=== PATIENT | male | born 1980 | race Caucasian/White ===

== ENCOUNTER 2018-11-24 17:14 | Observation (INO) | payer BC, SELFPAY ==
[~2018-11-24] VITALS: Ht 182.9 cm; Wt 104.3 kg
[2018-11-24 18:12] LABS: BASOPHILS ABSOLUTE AUTO 0.03 K/mm3 (0.00-0.23); BASOPHILS PERCENT AUTO 0 % (0-2); EOSINOPHILS ABSOLUTE AUTO 0.15 K/mm3 (0.00-0.68); EOSINOPHILS PERCENT AUTO 1 % (0-6); Hematocrit 45.5 % (37.0-53.0); Hemoglobin 15.2 g/dL (13.5-17.5); IMMATURE GRAN ABSOLUTE AUTO 0.07 K/mm3 (0.00-0.10); IMMATURE GRAN PERCENT AUTO 1 % (0-1); LYMPHOCYTES PERCENT AUTO 12 % (21-46); MONOCYTES ABSOLUTE AUTO 1.12 K/mm3 (0.16-1.47); MONOCYTES PERCENT AUTO 7 % (4-13); Mean Corpuscular HGB 28.6 pg (26.0-34.0); Mean Corpuscular HGB Conc 33.4 g/dL (31.5-36.5); Mean Corpuscular Volume 86 fL (80-100); NEUTROPHILS ABSOLUTE AUTO 12.15 K/mm3 (1.96-9.15); NEUTROPHILS PERCENT AUTO 79 % (41-73); Platelet Count 381 K/mm3 (150-400); RDW Coefficient Variation 12.4 % (11.7-14.2); RDW Standard Deviation 38.5 fL (35.1-46.3); Red Blood Cell Count 5.31 M/mm3 (4.30-5.90); White Blood Cell Count 15.32 K/mm3 (4.00-11.30)
[2018-11-24 18:22] LABS: Alanine Aminotransfer (ALT/SGP 225 U/L (12-78); Albumin, Blood 4.1 g/dL (3.4-5.0); Alk Phos 233 U/L (50-136); Anion Gap 9 mmol/L (6-16); Aspartate Aminotrans (AST/SGOT 358 U/L (12-37); Bilirubin, Total 0.9 mg/dL (0.1-1.0); Blood Urea Nitrogen 15 mg/dL (8-24); Bun/Creatinine Ratio 20.6 (12.0-20.0); CO2, Blood 26 mmol/L (21-32); Calcium, Blood 8.8 mg/dL (8.5-10.1); Chloride, Blood 102 mmol/L (98-108); Creatinine, Blood 0.73 mg/dL (0.60-1.20); Glomerular Filtration Rate >60 (60-); Glucose, Blood 267 mg/dL (70-99); Potassium, Blood 3.9 mmol/L (3.5-5.5); Sodium, Blood 137 mmol/L (136-145); Total Protein, Blood 8.1 g/dL (6.4-8.2); Troponin I <0.015 ng/mL (0.000-0.040)
[2018-11-24] MEDS ORDERED: METF500C PO (19:45)
[2018-11-24] MEDS ORDERED: Vitamin B-121000 MCG PO (19:46)
[2018-11-24] MEDS ORDERED: GLIP10 PO (19:46)
--- NOTE | 2018-11-25 06:13 | NUR ---
PT HAD NO ACUTE CHANGES T/O NIGHT, VSS. PAIN MGD PER EMAR W/REP RELIEF. PT C/O MILD NAUSEA, NO EMESIS, ZOFRAN GIVEN W/REPO RELIEF. PT NPO SINCE ARRIVING TO FLOOR, FOR PLAN FOR OR TODAY; IVF CONT PER ORDERS. PT INDEP IN ROOM IS USING CALL LIGHT FOR ASSISTANCE, WILL CONT TO MONITOR UNTIL REP GIVEN TO ONCOMING RN.
--- NOTE | 2018-11-25 14:11 | NUR ---
History, Chart, Medications and Allergies reviewed before start of procedure. Lungs clear T/O to Auscultation. Patient confirms NPO status and agrees with scheduled surgery. Pre-Op teaching done. Pt verbalizes understanding.
--- NOTE | 2018-11-25 15:30 | NUR ---
11/25/18 1530 Max Guerra PT ON SCHEDULED ANTIBIOTICS AND RECIEVED PRIOR TO ARRIVAL TO OR.
--- NOTE | 2018-11-25 19:00 | NUR ---
UNABLE TO MAINTAIN APPROPRIATE O2 SAT W/NC, OXIMYZER PLACE. PT STATES HX OF SLEEP APNEA, USES CPAP AT HOME. RT TO SET UP CPAP IN PT ROOM
--- NOTE | 2018-11-25 19:30 | NUR ---
TRANSPORTED TO ROOM 231 VIA STRETCHER, TRANSFERED TO BED WITH FULL STAFF ASSISTANCE, TOLERATED WELL. FAMILY AT BEDSIDE. DROWSY, BUT PAINFUL AT THIS TIME. UNABLE TO MEDICATE DUE TO RESPIRATORY STATUS IN RECOVERY. EXPLAINED THIS TO PT, VERBALIZES UNDERSTANDING. PLACED ON C-PAP UPON RETURN TO ROOM BY RT, TOLERATING WELL. LAP SITES X4 TO ABD WITH DRESSINGS THAT ARE C/D/I. VENKAT DRAIN TO RUQ WITH SEROSANGUINEOUS DRAINAGE NOTED IN BULB THAT IS DEPRESSED. CONTINENT OF BOWEL AND BLADDER, USES URINAL. SCD'S TO BLE. DENIES FURTHER NEEDS AT THIS TIME. SAFETY MEASURES IN PLACE. WILL CONTINUE TO MONOTOR.
--- NOTE | 2018-11-26 06:42 | NUR ---
SHIFT SUMMARY HAS SLEPT THROUGH SHIFT WITH OXYMIZER IN PLACE. USED URINAL IN BATHROOM, 650ML DARK JYOTI URINE NOTED. TOLERATING IVF INFUSION WELL. PAIN MANAGED WITH PO PAIN MEDS. 90ML OUTPUT FROM VENKAT DRAIN. USING IS AT BEDSIDE AFTER BEING INSTRUCTED. MAINATINING O2 AT 92% ON O2 AT 2L/NC. DEINES FURTHER NEEDS OR WANTS AT THIS TIME. SAFETY MEASURES IN PLACE. WILL GIVEN HAND OFF TO ONCOING SHIFT USING SBAR.
[2018-11-26] MEDS ORDERED: Norco 5-325 Ta1 EACH PO (13:59)
--- NOTE | 2018-11-26 14:27 | NUR ---
DISCHARGE SUMMARY PT A&0X4, VSS, LEFT FLOOR VIA WC TO GO HOME WITH FAMILY, WITH ALL PERSONAL POSSESSIONS, AND DISCHARGE PACKET WITH 1 [employer] SCRIPT. DISCHARGE INSTRUCTIONS PROVIDED. PT REP UNDERSTANDING THOSE INSTRUCTIONS INCLUDING LEAVE STERI STRIPS IN PLACE, OK TO SHOWER, NO TUB/JACUZZI, HOW TO DRAIN VENKAT, FU APPT IN 1 WK WITH SURGEON. IV DC'D.
== END 2018-11-26 14:21 | disposition home or self-care (01) ==
LOC: ER 17:14 → SURS 17:15 → ER 19:31 → SURS 19:31
PROVIDERS: Emergency Medicine; Surgery; ADMIT Surgery
PROC: 0FT44ZZ Resection of Gallbladder, Percutaneous Endoscopic Approach (ICD-10-PCS; principal; 2018-11-25 15:00)
PROC: BF13YZZ Fluoroscopy of Gallbladder and Bile Ducts using Other Contrast (ICD-10-PCS; principal; 2018-11-25 15:00)
DX: K80.00 Calculus of gallbladder with acute cholecystitis without obstruction (principal); D72.829 Elevated white blood cell count, unspecified; E11.65 Type 2 diabetes mellitus with hyperglycemia
CPT/HCPCS: 36415; 71046; 74300; 76705; 80053; 82947; 83690; 84484; 85025; 88304; 93005; 93010; 94660; 94762; 96361; 96365; 96375; 96376; 99285-25; A9270-GY; C1729; G0378; J1170; J1885; J2250; J2405; J2543; J2704; J2710; J3010; J7030; J7120